=== PATIENT | female | born 1955 | race Caucasian/White ===

== ENCOUNTER 2018-06-29 05:43 | Day surgery (SDC) | payer OTHER, MEDICAID ==
[2018-06-29] MEDS ORDERED: SOD CHLORIDE 0.9% 1,000 ML IV (06:00)
[2018-06-29] MEDS ORDERED: CEFAZOLIN 2 GM/50 ML (PMX) 50 ML IVPB (06:00)
[2018-06-29] MEDS ORDERED: PROPOFOL 200 MG INJ (07:00)
[2018-06-29] MEDS: BUPIVACAINE 0.25% (MPF) 30 ML INJ (07:23)
[2018-06-29] MEDS ORDERED: CEFAZOLIN 1 GM INJ (07:26)
[2018-06-29] MEDS ORDERED: ONDANSETRON 4 MG INJ (07:26)
[2018-06-29] MEDS ORDERED: METOCLOPRAMIDE 10 MG INJ (07:26)
[2018-06-29] MEDS ORDERED: MIDAZOLAM 1 MG/ML 2 ML INJ (07:26)
[2018-06-29] MEDS ORDERED: NEOSTIGMINE 3 MG/3 ML SYRINGE (07:26)
[2018-06-29] MEDS ORDERED: FENTAnyl 50 MCG/ML VIAL (07:27)
[2018-06-29] MEDS ORDERED: DIPHENHYDRAMINE 50 MG INJ IV (07:30)
[2018-06-29] MEDS ORDERED: hydrALAzine 20 MG INJ IV (07:30)
[2018-06-29] MEDS ORDERED: OXYCODONE/ACETAMINOPHEN (5/325) TAB PO ×2 (07:30)
[2018-06-29] MEDS ORDERED: ONDANSETRON 4 MG INJ IV (07:30)
[2018-06-29] MEDS ORDERED: MEPERIDINE 25 MG INJ IV (07:30)
[2018-06-29] MEDS ORDERED: HYDROmorphONE 1 MG/5 ML IV SYRINGE IV ×2 (07:30)
[2018-06-29] MEDS ORDERED: LABETALOL HCL 20MG INJ IV (07:30)
[2018-06-29] MEDS: HYDROmorphONE 1 MG/5 ML IV SYRINGE IV (08:46)
[2018-06-29] MEDS: HYDROCODONE/APAP (5/325) TAB PO (10:12)
== END 2018-06-29 10:47 | disposition home or self-care (01) ==
LOC: SDS 05:43
DX: C85.15 Unspecified B-cell lymphoma, lymph nodes of inguinal region and lower limb (principal)
CPT/HCPCS: 14001; 88307; 88331